=== PATIENT | male | born 1955 | race Caucasian/White ===

== ENCOUNTER 2016-09-10 00:19 | Emergency (ER) | payer BC ==
[~2016-09-10] VITALS: Ht 172.7 cm; Wt 77.3 kg
[~2016-09-10 00:19] MED LIST: AFRIN,GENASAL D15 ML BOTH NARES; ASPIR-LOW81 MG PO; PREVACID30 MG PO; RANITIDINE HCL150 M1 PO; TYLENOL EXTRA500 MG PO
[2016-09-10 02:09] LABS: BASOPHIL COUNT 0.1 K/uL (0-0.1); EOSINOPHIL (%) 2.3 % (0-5); EOSINOPHIL COUNT 0.2 K/uL (0-0.3); HEMATOCRIT 42.1 % (38.0-50.0); IMMATURE GRANULOCYTE (%) 1.2 % (0.0-0.7); IMMATURE GRANULOCYTE COUNT 0.1 K/uL; INSTRUMENT ABS NEUTROPHIL CT 5.8 K/uL; LYMPHOCYTE COUNT 1.7 K/uL (1.0-2.8); MCH 28.3 PG (29.0-34.0); MCHC 33.3 G/DL (30.0-36.0); MCV 85.1 FL (86-99); MEAN PLAT.VOLUME 9.8 uM^3 (9.0-12.4); MONOCYTE (%) 8.7 % (3-12); MONOCYTE COUNT 0.8 K/uL (0-0.8); NEUTROPHIL (%) 67.2 % (45-76); NEUTROPHIL COUNT 5.8 K/uL (1.8-6.4); PLATELET COUNT 286 K/uL (156-360); RBC DIS.WIDTH-CV 13.1 % (11.8-14.6); RBC DIS.WIDTH-SD 40.6 % (39-53); RED BLOOD COUNT 4.95 M/uL (4.00-5.50); WHITE BLOOD COUNT 8.6 K/uL (4.1-10.2)
[2016-09-10 02:21] LABS: D-DIMER ELISA < 0.15 mg/L FEU (< 0.57)
[2016-09-10 02:22] LABS: CHLORIDE 108 mEq/L (99-109); POTASSIUM 4.3 mEq/L (3.7-5.4); SODIUM 141 mEq/L (136-147)
[2016-09-10 02:25] LABS: GLUCOSE 107 mg/dL (70-99)
[2016-09-10 02:26] LABS: ANION GAP 9 MEQ/L (2-14)
[2016-09-10 02:27] LABS: TOTAL BILIRUBIN 1.6 mg/dL (0.0-1.0)
[2016-09-10 02:28] LABS: ALKALINE PHOSPHATASE 66 IU/L (3-129); GFR ESTIMATE (CALCULATED) > 59 mL/min/
[2016-09-10 02:29] LABS: UREA NITROGEN (BUN) 8 mg/dL (9-23)
[2016-09-10 02:32] LABS: TROP-I INTERPRETATION NEGATIVE; TROPONIN-I < 0.01 ng/mL (0.0-0.30)
[2016-09-10 04:35] VITALS: BP 120/84
== END 2016-09-10 04:38 | disposition home or self-care (01) ==
LOC: EME 00:19
PROVIDERS: Emergency Medicine
DX: R07.9 Chest pain, unspecified (principal); R06.00 Dyspnea, unspecified; R05 Cough
CPT/HCPCS: 71020; 80053; 84484; 85025; 85379; 93005; 99281; 99284

== ENCOUNTER 2017-02-09 01:13 | Emergency (ER) | payer BC ==
[~2017-02-09] VITALS: Ht 172.7 cm; Wt 77.7 kg
[2017-02-09 01:46] LABS: HEMATOCRIT 42.9 % (38.0-50.0); MCH 28.3 PG (29.0-34.0); MCHC 32.9 G/DL (30.0-36.0); MEAN PLAT.VOLUME 9.9 uM^3 (9.0-12.4); PLATELET COUNT 325 K/uL (156-360); RED BLOOD COUNT 4.99 M/uL (4.00-5.50); WHITE BLOOD COUNT 10.8 K/uL (4.1-10.2)
[2017-02-09 01:55] LABS: CHLORIDE 106 mEq/L (99-109); POTASSIUM 3.9 mEq/L (3.7-5.4); SODIUM 139 mEq/L (136-147)
[2017-02-09 01:57] LABS: GLUCOSE 109 mg/dL (70-99)
[2017-02-09 01:58] LABS: ANION GAP 9 MEQ/L (2-14)
[2017-02-09 02:01] LABS: GFR ESTIMATE (CALCULATED) > 59 mL/min/; UREA NITROGEN (BUN) 13 mg/dL (9-23)
[2017-02-09 02:07] LABS: TROP-I INTERPRETATION NEGATIVE; TROPONIN-I < 0.01 ng/mL (0.0-0.30)
[2017-02-09 04:44] LABS: TROP-I INTERPRETATION NEGATIVE; TROPONIN-I < 0.01 ng/mL (0.0-0.30)
[2017-02-09 06:28] VITALS: BP 114/76
== END 2017-02-09 06:05 | disposition home or self-care (01) ==
LOC: EME 01:13
PROVIDERS: Emergency Medicine
DX: R07.9 Chest pain, unspecified (principal); F41.9 Anxiety disorder, unspecified; Z90.49 Acquired absence of other specified parts of digestive tract
CPT/HCPCS: 71020; 80048; 84484; 85027; 93005; 99281; 99284